=== PATIENT | male | born 1985 | race Caucasian/White ===

== ENCOUNTER 2019-05-15 21:24 | Emergency (ER) | payer BC, OTHER ==
--- OUTSIDE RECORDS SUMMARY | 2019-05-15 21:26 | XMS REPORT ---
:1985 Author Organization [facility] Address [address] [place] [address] [address]. [address] [place] [address] Care Team Providers Name Role Phone Unavailable Unavailable Unavailable Problems This patient has no known problems. Allergies, Adverse Reactions, Alerts This patient has no known allergies or adverse reactions. Medications This patient has no known medications.
--- NOTE | 2019-05-15 22:11 | ER ---
Nurse's Notes [facility] Name: Lavell Bridges Age: 33 yrs Sex: Male : 1985 Arrival Date: 05/15/2019 Time: 21:28 Bed 24 Private MD: Ge Vuong T Diagnosis: Cutaneous abscess of neck Presentation: 05/15 21:43 Presenting complaint: Patient states: Cyst at the upper back x 1.5 weeks ago. Has ca1 gotten worse in the last 48 hours. Scheduled for surgery on with Dr. Ross. Doesn't want I\T\D now, wants to reduce size and redness or maybe start on antibiotics. Would like to keep their schedule with Dr. Ross. Denies fever. Transition of care: patient was not received from another setting of care. Onset of symptoms was May 15, 2019. Risk Assessment: Do you want to hurt yourself or someone else? Patient reports no desire to harm self or others. Initial Sepsis Screen: Does the patient meet any 2 criteria? No. Patient's initial sepsis screen is negative. Does the patient have a suspected source of infection? No. Patient's initial sepsis screen is negative. Care prior to arrival: None. 21:43 Method Of Arrival: Ambulatory ca1 21:43 Acuity: RICHARD 4 ca1 Historical: - Allergies: 21:46 No Known Allergies; ca1 - Home Meds: 21:46 None [Active]; ca1 - PMHx: 21:46 None; ca1 - PSHx: 21:46 None; ca1 - Immunization history:: Adult Immunizations up to date, Last tetanus immunization: up to date Flu vaccine is up to date. - Social history:: Smoking status: Patient reports the use of cigarette tobacco products, smokes one-half pack cigarettes per day. - Ebola Screening: : Patient negative for fever greater than or equal to 101.5 degrees Fahrenheit, and additional compatible Ebola Virus Disease symptoms Patient denies exposure to infectious person Patient denies travel to an Ebola-affected area in the 21 days before illness onset No symptoms or risks identified at this time. Screenin:20 Abuse screen: Denies threats or abuse. Nutritional screening: No deficits noted. jv1 Tuberculosis screening: No symptoms or risk factors identified. Fall Risk None identified. Assessment: 22:14 General: Appears in no apparent distress. uncomfortable, well groomed, Behavior is jv1 calm, cooperative, appropriate for age. 22:15 Pain: Complains of pain in right upper back Pain does not radiate. Pain currently is 8 jv1 out of 10 on a pain scale. Quality of pain is described as aching, Pain began 2-3 days ago. Neuro: Level of Consciousness is awake, alert, obeys commands, Oriented to person, place, time, situation, Lithostripper are equal bilaterally Moves all extremities. Gait is steady. Cardiovascular: Denies chest pain. Respiratory: Airway is patent Respiratory effort is even, unlabored, Respiratory pattern is regular, symmetrical, Breath sounds are clear bilaterally. GI: No signs and/or symptoms were reported involving the gastrointestinal system. : No signs and/or symptoms were reported regarding the genitourinary system. EENT: No signs and/or symptoms were reported regarding the EENT system. Derm: Abscess located on right upper back is hot to touch, is red, is raised, Reports increased pain that is 8 out of 10 on a pain scale. Parent/caregiver reports the patient having he is due for incision and drainage on 05/16/19. Musculoskeletal: No signs and/or symptoms reported regarding the musculoskeletal system. Circulation, motion, and sensation intact. Capillary refill < 3 seconds. 22:20 Reassessment: provider in the room. jv1 Vital Signs: 21:46 BP 124 / 85; Pulse 108; Resp 17 S; Temp 98.5(O); Pulse Ox 98% on R/A; Weight 86.18 kg ca1 (R); Height 5 ft. 9 in. (175.26 cm) (R); Pain 2/10; 22:27 BP 120 / 80; Pulse 90; Resp 18; Temp 98.3; Pulse Ox 98% ; Pain 6/10; jv1 21:46 Body Mass Index 28.06 (86.18 kg, 175.26 cm) ca1 ED Course: 21:28 Patient arrived in ED. es 21:28 Ge Vuong MD is Private Physician. es 21:45 Triage completed. ca1 21:46 Arm band placed on right wrist. ca1 21:49 Ana Pham FNP-C [facility]. snw 21:49 Filiberto Rahman MD is Attending Physician. snw 22:09 Jacky Ross MD is Referral Physician. snw 22:20 Patient has correct armband on for positive identification. Call light in reach. Side jv1 rails up X 1. 22:20 No provider procedures requiring assistance completed. Patient did not have IV access jv1 during this emergency room visit. Administered Medications: 22:13 Drug: Glen (7.5 mg-325 mg) 1 tabs Route: PO; jv1 22:28 Follow up: Response: No adverse reaction; Pain is decreased jv1 22:13 Drug: Phenergan 25 mg Route: PO; jv1 22:28 Follow up: Response: No adverse reaction; Pain is decreased jv1 22:14 Drug: Clindamycin 300 mg Route: PO; jv1 22:28 Follow up: Response: No adverse reaction jv1 Outcome: 22:10 Discharge ordered by . snw 22:20 Condition: good jv1 22:25 Discharged to home ambulatory, with significant other. jv1 22:25 Discharge instructions given to patient, significant other, Instructed on discharge instructions, follow up and referral plans. medication usage, Demonstrated understanding of instructions, follow-up care, medications, wound care, Prescriptions given X 2. 22:29 Patient left the ED. jv1 Signatures: Ana Pham, SECURITY DIRECTOR-C SECURITY DIRECTOR-Csnw Kusum Lam Joyce RN RN jv1 Nandini Nguyen RN RN ca1
--- NOTE | 2019-05-15 22:11 | EDPHYS ---
Physician Documentation [facility] Name: Lavell Bridges Age: 33 yrs Sex: Male : 1985 Arrival Date: 05/15/2019 Time: 21:28 Bed 24 Private MD: Ge Vuong T ED Physician Filiberto Rahman HPI: 05/16 00:13 This 33 yrs old Male presents to ER via Ambulatory with complaints of Cyst. snw 00:13 Onset: The symptoms/episode began/occurred acutely. Associated signs and symptoms: snw Pertinent positives: pain. Modifying factors: The patient symptoms are alleviated by nothing, the patient symptoms are aggravated by touching. The patient has experienced a previous episode. appt with Dr. Ross . Historical: - Allergies: 05/15 21:46 No Known Allergies; ca1 - Home Meds: 21:46 None [Active]; ca1 - PMHx: 21:46 None; ca1 - PSHx: 21:46 None; ca1 - Immunization history:: Adult Immunizations up to date, Last tetanus immunization: up to date Flu vaccine is up to date. - Social history:: Smoking status: Patient reports the use of cigarette tobacco products, smokes one-half pack cigarettes per day. - Ebola Screening: : Patient negative for fever greater than or equal to 101.5 degrees Fahrenheit, and additional compatible Ebola Virus Disease symptoms Patient denies exposure to infectious person Patient denies travel to an Ebola-affected area in the 21 days before illness onset No symptoms or risks identified at this time. ROS: 05/16 00:13 Constitutional: Negative for fever, chills, and weight loss, Eyes: Negative for injury, snw pain, redness, and discharge, ENT: Negative for injury, pain, and discharge, Neck: Negative for injury, pain, and swelling, Cardiovascular: Negative for chest pain, palpitations, and edema, Respiratory: Negative for shortness of breath, cough, wheezing, and pleuritic chest pain, Abdomen/GI: Negative for abdominal pain, nausea, vomiting, diarrhea, and constipation, Back: Negative for injury and pain, : Negative for injury, bleeding, discharge, and swelling, MS/Extremity: Negative for injury and deformity, Neuro: Negative for headache, weakness, numbness, tingling, and seizure, Psych: Negative for depression, anxiety, suicide ideation, homicidal ideation, and hallucinations. Skin: Positive for abscess, of the right mid cervical area. Exam: 00:13 Constitutional: This is a well developed, well nourished patient who is awake, alert, snw and in no acute distress. Head/Face: Normocephalic, atraumatic. Eyes: Pupils equal round and reactive to light, extra-ocular motions intact. Lids and lashes normal. Conjunctiva and sclera are non-icteric and not injected. Cornea within normal limits. Periorbital areas with no swelling, redness, or edema. ENT: Nares patent. No nasal discharge, no septal abnormalities noted. Tympanic membranes are normal and external auditory canals are clear. Oropharynx with no redness, swelling, or masses, exudates, or evidence of obstruction, uvula midline. Mucous membranes moist. Chest/axilla: Normal chest wall appearance and motion. Nontender with no deformity. No lesions are appreciated. Cardiovascular: Regular rate and rhythm with a normal S1 and S2. No gallops, murmurs, or rubs. Normal PMI, no JVD. No pulse deficits. Respiratory: Lungs have equal breath sounds bilaterally, clear to auscultation and percussion. No rales, rhonchi or wheezes noted. No increased work of breathing, no retractions or nasal flaring. Abdomen/GI: Soft, non-tender, with normal bowel sounds. No distension or tympany. No guarding or rebound. No evidence of tenderness throughout. Back: No spinal tenderness. No costovertebral tenderness. Full range of motion. Skin: Warm, dry with normal turgor. Normal color with no rashes, no lesions, and no evidence of cellulitis. MS/ Extremity: Pulses equal, no cyanosis. Neurovascular intact. Full, normal range of motion. Neuro: Awake and alert, GCS 15, oriented to person, place, time, and situation. Cranial nerves II-XII grossly intact. Motor strength 5/5 in all extremities. Sensory grossly intact. Cerebellar exam normal. Normal gait. Psych: Awake, alert, with orientation to person, place and time. Behavior, mood, and affect are within normal limits. 00:13 Neck: External neck: swelling, that is moderate, of the right mid cervical area, tenderness, large cutaneous abscess - pt to have I\T\D per Dr. Ross in 3 days. Does not wish I\T\D now. Needle placed for decompression.. Vital Signs: 05/15 21:46 BP 124 / 85; Pulse 108; Resp 17 S; Temp 98.5(O); Pulse Ox 98% on R/A; Weight 86.18 kg ca1 (R); Height 5 ft. 9 in. (175.26 cm) (R); Pain 2/10; 22:27 BP 120 / 80; Pulse 90; Resp 18; Temp 98.3; Pulse Ox 98% ; Pain 6/10; jv1 21:46 Body Mass Index 28.06 (86.18 kg, 175.26 cm) ca1 Procedures: 05/16 00:20 needle aspiration of 3ml thick purulent exudate to decompress right posterior neck snw abscess. MDM: 05/15 21:50 Patient medically screened. snw 05/16 00:18 Data reviewed: vital signs, nurses notes. Data interpreted: Pulse oximetry: on room air snw is 98 %. Interpretation: normal. Counseling: I had a detailed discussion with the patient and/or guardian regarding: the historical points, exam findings, and any diagnostic results supporting the discharge/admit diagnosis, the need for outpatient follow up, to return to the emergency department if symptoms worsen or persist or if there are any questions or concerns that arise at home. Response to treatment: the patient's symptoms have mildly improved after treatment. Special discussion: I discussed in detail with the patient the higher chance of wound infection based on his presenting history. Based on the history and exam findings, there is no indication for further emergent testing or inpatient evaluation. I discussed with the patient/guardian the need to see the general surgeon for further evaluation of the symptoms. Administered Medications: 05/15 22:13 Drug: [place] (7.5 mg-325 mg) 1 tabs Route: PO; jv1 22:28 Follow up: Response: No adverse reaction; Pain is decreased jv1 22:13 Drug: Phenergan 25 mg Route: PO; jv1 22:28 Follow up: Response: No adverse reaction; Pain is decreased jv1 22:14 Drug: Clindamycin 300 mg Route: PO; jv1 22:28 Follow up: Response: No adverse reaction jv1 Disposition: 05/16 07:47 Co-signature as Attending Physician, Filiberto Rahman MD I agree with the assessment and norma plan of care. Disposition: 05/15/19 22:10 Discharged to Home. Impression: Cutaneous abscess of neck. - Condition is Stable. - Discharge Instructions: Skin Abscess, Incision and Drainage, Heat Therapy. - Prescriptions for Clindamycin HCl 300 mg Oral Capsule - take 1 capsule by ORAL route every 6 hours for 10 days; 40 capsule. Diclofenac Sodium 75 mg Oral Tablet Sustained Release - take 1 tablet by ORAL route 2 times per day; 30 tablet. - Work release form, Medication Reconciliation Form, Thank You Letter, Antibiotic Education, Prescription Opioid Use form. - Follow up: Emergency Department; When: As needed; Reason: Worsening of condition. Follow up: Jacky Ross MD; When: 2 - 3 days; Reason: Recheck today's complaints, Continuance of care, Re-evaluation by your physician. Signatures: Filiberto Rahman MD MD cha Therrien, Shelly, LEADERSHIP INTERN-C LEADERSHIP INTERN-Csnw Evelyn Tam RN RN jv1 AcNandini manning RN RN ca1 Corrections: (The following items were deleted from the chart) 05/15 22:29 22:10 05/15/2019 22:10 Discharged to Home. Impression: Cutaneous abscess of neck. jv1 Condition is Stable. Forms are Medication Reconciliation Form, Thank You Letter, Antibiotic Education, Prescription Opioid Use. Follow up: Emergency Department; When: As needed; Reason: Worsening of condition. Follow up: Jacky Ross; When: 2 - 3 days; Reason: Recheck today's complaints, Continuance of care, Re-evaluation by your physician. snw
[2019-05-15] MEDS ORDERED: HYDROCODONE/APAP 7.5/325 MG TAB ONE (22:12)
[2019-05-15] MEDS ORDERED: PROMETHAZINE 25 MG TABLET ONE (22:12)
[2019-05-16 03:18] VITALS: BP 124/85; TEMP 98.5; O2SAT 98
== END 2019-05-15 22:29 | disposition home or self-care (01) ==
LOC: ER 21:24
PROC: 0H94XZX Drainage of Neck Skin, External Approach, Diagnostic (ICD-10-PCS; principal; 2019-05-15)
DX: L02.11 Cutaneous abscess of neck (principal); F17.210 Nicotine dependence, cigarettes, uncomplicated
CPT/HCPCS: 99283; 10021; Q0169